=== PATIENT | female | born 1970 | race Caucasian/White ===

== ENCOUNTER → 2018-03-11 | Day surgery (SDC) | payer OTHER ==
--- NOTE | 2018-03-11 11:23 | RAD REPORT ---
EXAM DESCRIPTION: US - Breast Core BX w/US Guidance - 03/11/2018 10:13 am CLINICAL HISTORY: ICD N60.9 II. COMPARISON: Ultrasound 02/28/2018. TECHNIQUE: The risks, benefits and alternatives to the procedure were explained to the patient and i nformed consent obtained. The palpable complex cystic mass within the lower outer right breast was localized with ultrasound. S kin and subcutaneus tissues were anesthetized with Lidocaine. Under sonographic guidance an 18-gauge needle was placed into the mass. The mass began to collapse. A couple of mL of fluid was removed and sent to the lab. The 11 mm hypoechoic mass within the upper inner right breast was then localized. Skin and subcutaneo us tissues were anesthetized with Lidocaine. Under sonographic guidance, two 14-gauge vacuum assisted core biopsies were obtained. A 1 cm core was obtained with the first pass. A 2 cm core was obtained with the second pass and specimens given to pathology. The patient experienced no immediate complication. IMPRESSION: 1. Fine-needle aspiration of a complex cyst within the lower outer right breast. A couple mL of fluid was sent to the lab. The cyst collapsed during the procedure. 2. Two 14-gauge vacuum assisted core biopsies of the 11 mm mass within the upper inner right breast.
== END | disposition home or self-care (01) ==
LOC: DS 10:00
PROVIDERS: ATTEND Specialist
PROC: 0HBT3ZX Excision of Right Breast, Percutaneous Approach, Diagnostic (ICD-10-PCS; principal; 2018-03-11)
PROC: 0H9T3ZX Drainage of Right Breast, Percutaneous Approach, Diagnostic (ICD-10-PCS; 2018-03-11)
PROC: BH40ZZZ Ultrasonography of Right Breast (ICD-10-PCS; 2018-03-11)
DX: N60.91 Unspecified benign mammary dysplasia of right breast (principal)
CPT/HCPCS: 19083; 88161; 88305